=== PATIENT | male | born 1940 | race Caucasian/White ===

== ENCOUNTER 2017-11-26 15:16 | Emergency (ER) | payer OTHER ==
[~2017-11-26] VITALS: Ht 165.1 cm; Wt 74.4 kg
[2017-11-26] MEDS ORDERED: VALIUM2 MG PO (15:41)
[2017-11-26 15:55] VITALS: BP 149/82
== END 2017-11-26 15:57 | disposition home or self-care (01) ==
LOC: EME 15:16
DX: M54.2 Cervicalgia (principal); R51 Headache; M54.9 Dorsalgia, unspecified; V49.40XA Driver injured in collision with unspecified motor vehicles in traffic accident, initial encounter; Y92.410 Unspecified street and highway as the place of occurrence of the external cause; E78.5 Hyperlipidemia, unspecified; Z85.01 Personal history of malignant neoplasm of esophagus
CPT/HCPCS: 99281; 99284